=== PATIENT | male | born 1980 | race Caucasian/White ===

== ENCOUNTER 2019-05-07 11:37 | Emergency (ER) | payer SELFPAY ==
[~2019-05-07] VITALS: Ht 188 cm; Wt 74.8 kg
[2019-05-07 13:11] VITALS: BP 120/87
== END 2019-05-07 13:00 | disposition home or self-care (01) ==
LOC: ER 11:47
DX: S91.201A Unspecified open wound of right great toe with damage to nail, initial encounter (principal); S90.411A Abrasion, right great toe, initial encounter; S90.414A Abrasion, right lesser toe(s), initial encounter; Y93.01 Activity, walking, marching and hiking; Y92.488 Other paved roadways as the place of occurrence of the external cause; I25.10 Atherosclerotic heart disease of native coronary artery without angina pectoris; J44.9 Chronic obstructive pulmonary disease, unspecified; K76.9 Liver disease, unspecified; G40.909 Epilepsy, unspecified, not intractable, without status epilepticus
CPT/HCPCS: 93005; 99283